=== PATIENT | male | born 1960 | race Caucasian/White ===

== ENCOUNTER 2021-04-26 12:17 | Outpatient (CLI) | payer BC, SELFPAY ==
--- NOTE | ~2021-04-26 | CT_ITS ---
EXAMINATION:CT lung screening DATE: 04/26/2021 12:35 INDICATION: Nicotine dependence, cigarettes, uncomplicated. TECHNIQUE: Computed tomography (CT) of the chest was performed without intravenous contrast. Automate d exposure control and iterative reconstruction technique were employed. The dose-length product (DLP ) was 129.41 mGy-cm. COMPARISON: None. FINDINGS: There is mild scarring at left lung apex and right lung base. There is mild emphysema. Ther e is a 4 mm nodule in right lower lobe. Calcified bilateral lung nodules are consistent with old gran ulomatous disease. No pleural effusion. The heart size is normal. No pericardial effusion. Calcificat ions in the spleen are consistent with old granulomatous disease. There are cysts in the liver measur ing up to 13 mm. There is mild chronic anterior wedging of multiple thoracic vertebral bodies. There is mild thoracic spondylosis. IMPRESSION: 1. Lung-RADS category 2: Benign appearance or behavior. Continue annual screening with noncontrast lo w-dose chest CT in 12 months. Reviewed, dictated and finalized at location A. IMPRESSION: 1. Lung-RADS category 2: Benign appearance or behavior. Continue annual screeni ng with noncontrast low-dose chest CT in 12 months.
== END 2021-04-26 12:18 | disposition home or self-care (01) ==
LOC: ANHIMG 12:20
PROVIDERS: PCP Internal Medicine; Visit Provider Nurse Practitioner
DX: F17.210 Nicotine dependence, cigarettes, uncomplicated (principal)
CPT/HCPCS: 71271

== ENCOUNTER 2021-08-31 02:56 | Day surgery (SDC) | payer BC, SELFPAY ==
[2021-08-13 12:19] VITALS: BMI 27.3
--- NOTE | 2021-08-30 09:32 | WPDANESEPPF ---
Anes - Initial Pre Proc Eval Procedure: Operation Date: 08/31/21 10:00 Proposed Procedures p Screening Colonoscopy - Eran Dela Cruz MD Date/Time: 08/30/21 09:32 Surgeon: Eran Dela Cruz MD Pre Op Diagnosis: neoplasm screening Patient Data Age: 61 Gender: M Height: 1.85 m Weight: 94 kg Allergies Allergy/AdvReac Type Severity Reaction Status Date / Time No Known Allergies Allergy Verified 08/22/21 13:57 Home Medications Medication Instructions Recorded Confirmed Type No Home Medications 04/13/21 08/13/21 History Patient hx anesthesia problems: none Family hx anesthesia problems: none Results Review: All pre-operative results and documents have been reviewed as part of the pre-operative evaluation. [facility] Past Medical History Medical History Hyperlipidemia Smoking greater than 30 pack years Family History Family History Mother Patient's mother is , Onset Age: 68 Father Patient's father is , Onset Age: 74 Social History Social History (Updated 04/13/21 @ 09:59 by Litzy Arreola) Social History: 3 cups of caffeine daily Smoking packs per day: 1 Smoking cigarettes per day: 20.0 Years smoked: 30 Smoking pack-years: 30.00 Smoking status: Former smoker Tobacco type: cigarettes Smoking end date: 07/21/17 Alcohol intake: current Drinks per week: 1 Alcohol use details: occasional Substance use: never Substance use type: does not use Living arrangements: with family Spiritual care concerns: No Anes - Eval Final PreProcedure Day of Procedure 08/30/21 09:32 Patient weight: overweight Heart: regular rate and rhythm Lungs: clear to auscultation and normal air movement Airway: Mallampati scale class II Neurological: alert and oriented Last oral intake: >/= 8 hours ASA classification: II Emergent: no Anesthetic plan: proceed Anesthesia type and monitoring: general GIVS and standard monitoring Results Review: All pre-operative results and documents have been reviewed as part of the pre-operative evaluation. Informed Consent: The patient's anesthetic plan and its attendant risks and benefits were discussed with the patient/family/POA. Questions were solicited and answers provided to the satisfaction of the patient/family/POA.
--- NOTE | 2021-08-30 14:37 | PM.HPGS ---
History of Present Illness History of Present Illness Consent: Risks, benefits, and alternatives have been discussed and questions answered. Patient agrees to proceed with procedure. Chief complaint: neoplasm screening Narrative: Sea Rollins is a 61 year old male referred for colon cancer screening his last colonoscopy was 10 years ago Review of Systems Review of Systems: All systems reviewed & are unremarkable except as noted in HPI and below PMFSH Past Medical History Medical History Hyperlipidemia Smoking greater than 30 pack years Family History Family History Mother Patient's mother is , Onset Age: 68 Father Patient's father is , Onset Age: 74 Social History Social History Social History: 3 cups of caffeine daily Smoking packs per day: 1 Smoking cigarettes per day: 20.0 Years smoked: 30 Smoking pack-years: 30.00 Smoking status: Former smoker Tobacco type: cigarettes Smoking end date: 07/21/17 Alcohol intake: current Drinks per week: 1 Alcohol use details: occasional Substance use: never Substance use type: does not use Living arrangements: with family Spiritual care concerns: No Meds Home Medications and Allergies Home Medications Medication Instructions Recorded Confirmed Type No Home Medications 04/13/21 08/13/21 History Allergies Allergy/AdvReac Type Severity Reaction Status Date / Time No Known Allergies Allergy Verified 08/22/21 13:57 Exam Resp: Auscultation: clear to auscultation bilaterally Cardio: Rate: regular rate Rhythm: regular rhythm GI: GI Palp: Yes Soft to palpation and No Tenderness to palpation present (GI) Assessment and Plan Assessment and plan (1) Screening for colon cancer: Code(s): Z12.11 - Encounter for screening for malignant neoplasm of colon Status: Acute Assessment and Plan: Colonoscopy with possible biopsy or polypectomy or cautery or injection of substances.
[2021-08-31 09:02] VITALS: BP 134/81; PULSE 63; RESP 20; TEMP 36.8; O2SAT 99; BMI 25.7
[2021-08-31] MEDS: LACTATED RINGERS 1,000 ML 150 ML IV CONT (09:36)
[2021-08-31 10:22] VITALS: BP 135/72; PULSE 71; RESP 16; O2SAT 99
[2021-08-31 10:32] VITALS: BP 146/81; PULSE 62; RESP 20; O2SAT 98
[2021-08-31 10:42] VITALS: BP 146/81; PULSE 54; RESP 19; O2SAT 100
== END 2021-08-31 11:02 | disposition home or self-care (01) ==
PROVIDERS: PCP Internal Medicine; Visit Provider Internal Medicine Gastroenterology
PROC: 0DJD8ZZ Inspection of Lower Intestinal Tract, Via Natural or Artificial Opening Endoscopic (ICD-10-PCS; CPT 45378; principal; 2021-08-31 10:00)
DX: Z12.11 Encounter for screening for malignant neoplasm of colon (principal); K64.8 Other hemorrhoids; K62.1 Rectal polyp; E78.5 Hyperlipidemia, unspecified; Z87.891 Personal history of nicotine dependence
CPT/HCPCS: 45380; 88305; J2704; J7120

== ENCOUNTER → 2022-04-15 10:31 | Outpatient (CLI) | payer BC, SELFPAY ==
--- NOTE | ~2022-04-15 | XR_ITS ---
EXAMINATION: XR foot RT min 3V DATE: 04/15/2022 10:41 INDICATION: Pain and deformity of the great toe TECHNIQUE: Dorsoplantar, lateral, and 2 oblique views of the right foot were obtained. COMPARISON: None. FINDINGS: There is advanced osteoarthritis of the first metatarsophalangeal joint. Mild osteoarthriti s is noted in multiple interphalangeal joints. There is no fracture. The soft tissues are unremarkabl e. Posterior and plantar calcaneal enthesophytes are noted. IMPRESSION: 1. Advanced osteoarthritis of the first metatarsophalangeal joint. Reviewed, dictated and finalized at location A.
== END ==
PROVIDERS: PCP Clinical Nurse Specialist; Visit Provider Clinical Nurse Specialist
DX: M19.071 Primary osteoarthritis, right ankle and foot (principal); M20.61 Acquired deformities of toe(s), unspecified, right foot
CPT/HCPCS: 73630

== ENCOUNTER 2024-06-09 07:59 | Outpatient (CLI) | payer OTHER, SELFPAY ==
[2024-06-09 14:13] LABS: Basophils Percent Auto 0.3 % (0.2-1.2); Eosinophils Absolute Auto 0.2 K/mm3 (0-0.3); Eosinophils Percent Auto 3.6 % (0-4.4); Hematocrit 46.6 % (42.0-52.0); Hemoglobin 15.8 g/dL (14.0-18.0); Immature Granulocyte Absolute 0.02 K/mm3 (0.00-0.031); Immature Granulocyte Percent A 0.3 % (0-0.5); Lymphocytes Absolute Auto 2.07 K/mm3 (0.9-3.2); Lymphocytes Percent Auto 31.4 % (18.3-44.2); Mean Corpuscular HGB Conc 33.9 g/dl (32-36); Mean Corpuscular Hemoglobin 34.3 pg (26-34); Mean Corpuscular Volume 101.1 fl (80-100); Mean Platelet Volume 10.1 fl (7.4-10.4); Monocytes Absolute Auto 0.6 K/mm3 (0.1-0.6); Monocytes Percent Auto 9.4 % (2.6-8.5); Neutrophils Absolute Auto 3.6 K/mm3 (1.3-6.7); Platelet Count Result 210 k/mm3 (150-375); Red Blood Count 4.61 M/mm3 (4.6-6.20); Red Cell Distribution Width 13.9 % (11.5-14.5); White Blood Count 6.6 K/mm3 (4.5-10.0)
[2024-06-09 18:47] LABS: Alanine Aminotransferase 20 U/L (6-50); Albumin Level 4.5 g/dL (3.5-5.1); Alkaline Phosphatase 58 U/L (38-126); Anion Gap 7 mmol/L (4-12); Aspartate Amino Transferase 74 U/L (17-59); Bilirubin,Total 0.9 mg/dL (0.2-1.3); Blood Urea Nitrogen 19 mg/dL (9-20); Calcium 9.1 mg/dL (8.4-10.2); Carbon Dioxide 30 mmol/L (22-30); Chloride 101 mmol/L (98-107); Cholesterol 180 mg/dL (0-200); Estimated Glomerular Filt Rate > 60; Glucose 89 mg/dL (65-110); HDL Direct 73 mg/dL; Potassium 4.5 mmol/L (3.4-5.0); Sodium 138 mmol/L (137-145); Triglycerides 109 mg/dL (<150)
[2024-06-09 19:04] LABS: LDL Cholesterol Direct 59 mg/dL
[2024-06-09 19:09] LABS: Prostate Specific Antigen 1.1 ng/mL (< OR = 4.0)
[2024-06-09 19:46] LABS: Hemoglobin A1C 5.6 % (<5.7)
== END 2024-06-09 08:00 | disposition home or self-care (01) ==
LOC: ANHGOSHLAB 08:00
PROVIDERS: PCP Internal Medicine; Visit Provider Clinical Nurse Specialist
DX: M79.671 Pain in right foot (principal); Z13.228 Encounter for screening for other metabolic disorders; Z12.5 Encounter for screening for malignant neoplasm of prostate; R73.9 Hyperglycemia, unspecified; E78.2 Mixed hyperlipidemia
CPT/HCPCS: 36415; 80053; 80061; 83036; 84153; 85025; G0103

== ENCOUNTER 2024-06-09 08:10 | Outpatient (CLI) | payer OTHER, SELFPAY ==
--- NOTE | ~2024-06-09 | XR_ITS ---
XR hip RT min 2V Ordering provider: JANELLE Jefferson History: . No injury right hip pain for 5 years . Comparison: None. FINDINGS: BONES: Lucency is seen in the subcapital area. Possibility of fracture cannot be excluded. CT is advi sed.. HIP JOINT SPACES: Moderate to severe narrowing of the right hip joint. Marginal osteophytes seen. SACROILIAC JOINT SPACES/LUMBAR SPINE: The sacroiliac joint spaces are normal. Mild degenerative salazar es of the visualized lower lumbar spine. PUBIC SYMPHYSIS: Normal. SOFT TISSUES: Normal. IMPRESSION: Lucency in the subcapital area. Fracture cannot be excluded. CT evaluation advised. Moderate to severe osteoarthritic changes of the right hip. Reviewed, dictated and finalized at location A. 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 Fracture cannot be excluded. CT evaluation advi sed. Moderate to severe osteoarthritic changes of the right hip.
--- NOTE | ~2024-06-09 | XR_ITS ---
XR foot RT min 3V Ordering provider: JANELLE Jefferson History: . No injury pain and bony mass at 1st MP joint for years . Comparison: None. FINDINGS: BONES: No acute fracture or dislocation. Early calcaneal spur JOINT SPACES: Severe narrowing of the first metatarsophalangeal joints with osteophytes suggestive of severe osteoarthritic changes. No tarsal coalition. SOFT TISSUES: Normal. IMPRESSION: No acute osseous abnormality of the right foot. Severe osteoarthritic changes of the first metatarsophalangeal joint. Reviewed, dictated and finalized at location A. RIDER
== END 2024-06-09 08:11 | disposition home or self-care (01) ==
LOC: GOSHIMG 08:11
PROVIDERS: PCP Internal Medicine; Visit Provider Clinical Nurse Specialist
DX: M19.071 Primary osteoarthritis, right ankle and foot (principal); M16.11 Unilateral primary osteoarthritis, right hip
CPT/HCPCS: 73502; 73630

== ENCOUNTER 2024-12-27 08:14 | Outpatient (CLI) | payer OTHER, SELFPAY ==
[2024-12-27 14:07] LABS: Alanine Aminotransferase 19 U/L (6-50); Albumin Level 4.8 g/dL (3.5-5.1); Alkaline Phosphatase 57 U/L (38-126); Anion Gap 9 mmol/L (4-12); Aspartate Amino Transferase 58 U/L (17-59); Bilirubin,Total 0.8 mg/dL (0.2-1.3); Blood Urea Nitrogen 22 mg/dL (9-20); Calcium 9.4 mg/dL (8.4-10.2); Carbon Dioxide 27 mmol/L (22-30); Chloride 100 mmol/L (98-107); Estimated Glomerular Filt Rate > 60; Glucose 104 mg/dL (65-110); Potassium 4.5 mmol/L (3.4-5.0); Sodium 136 mmol/L (137-145)
== END 2024-12-27 08:15 | disposition home or self-care (01) ==
PROVIDERS: PCP Internal Medicine; Visit Provider Clinical Nurse Specialist
DX: R74.01 Elevation of levels of liver transaminase levels (principal)
CPT/HCPCS: 36415; 80053

== ENCOUNTER 2025-02-16 08:19 | Outpatient (CLI) | payer OTHER, SELFPAY ==
[2025-02-16 20:07] LABS: Anion Gap 7 mmol/L (4-12); Blood Urea Nitrogen 16 mg/dL (9-20); Calcium 9.2 mg/dL (8.4-10.2); Carbon Dioxide 29 mmol/L (22-30); Chloride 100 mmol/L (98-107); Estimated Glomerular Filt Rate 59; Glucose 95 mg/dL (65-110); Potassium 4.8 mmol/L (3.4-5.0); Sodium 136 mmol/L (137-145)
== END 2025-02-16 08:20 | disposition home or self-care (01) ==
LOC: ANHGOSHLAB 08:20
PROVIDERS: PCP Internal Medicine; Visit Provider Clinical Nurse Specialist
DX: I10 Essential (primary) hypertension (principal)
CPT/HCPCS: 36415; 80048

== ENCOUNTER 2025-03-24 10:21 | Outpatient (CLI) | payer OTHER, SELFPAY ==
--- NOTE | ~2025-03-24 | XR_ITS ---
XR hip RT 2V w AP pelvis 03/24/2025 12:14 Indication: Right hip arthritis Procedure: AP pelvis and 2 views right hip Comparison: 07/16/2024 Findings: Progression of moderate osteoarthritis of the right hip. Mild osteoarthritis left hip. Pelvic rings intact. There is lower lumbar spondylosis. Sacral foramen are symmetric. Impression: 1: Bilateral osteoarthritis of the hips, right greater than left. Reviewed, dictated and finalized at location O. Impression: 1: Bilateral osteoarthritis of the hips, right greater than left.
== END 2025-03-24 10:22 | disposition home or self-care (01) ==
LOC: GOSHIMG 10:22
PROVIDERS: PCP Orthopaedic Surgery; Visit Provider Orthopaedic Surgery
DX: M16.0 Bilateral primary osteoarthritis of hip (principal)
CPT/HCPCS: 73502

== ENCOUNTER 2025-04-18 09:36 | Outpatient (CLI) | payer OTHER, SELFPAY ==
--- NOTE | ~2025-04-18 | CT_ITS ---
EXAMINATION: CT_LERTCHWO_CT DATE: 04/18/2025 09:56 INDICATION: Right hip osteoarthritis. Preoperative planning. TECHNIQUE: Computed tomography (CT) of the right hip was performed without intravenous contrast. Automated exposure control and iterative reconstruction technique were employed. The dose-length product was 1023.84 mGy-cm. COMPARISON: Radiographs 03/24/2025 FINDINGS: There are no dilated loops of bowel. The appendix is normal. There are no pathologically enlarged lymph nodes. There is no ascites. There is a right inguinal hernia containing fat. Alignment is normal. No fracture. There is severe right hip osteoarthritis with loose bodies. There is moderate left hip osteoarthritis. 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 Right knee demonstrates moderate osteoarthritis of the medial compartment and mild osteoarthritis of the lateral and patellofemoral compartments. Left knee demonstrates mild tricompartmental osteoarthritis. There is no knee joint effusion. IMPRESSION: 1. Severe right hip osteoarthritis with loose bodies. 2. Moderate left hip osteoarthritis. Reviewed, dictated and finalized at location E.
== END 2025-04-18 09:37 | disposition home or self-care (01) ==
PROVIDERS: PCP Orthopaedic Surgery; Visit Provider Orthopaedic Surgery
DX: M16.11 Unilateral primary osteoarthritis, right hip (principal); M24.051 Loose body in right hip
CPT/HCPCS: 73700

== ENCOUNTER 2025-05-26 08:42 | Outpatient (CLI) | payer OTHER, SELFPAY ==
[2025-05-26 13:02] LABS: Hematocrit 43.7 % (42.0-52.0); Hemoglobin 14.1 g/dL (14.0-18.0); Immature Granulocyte Percent A 0.3 % (0-0.5); Lymphocytes Absolute Auto 1.74 K/mm3 (0.9-3.2); Mean Corpuscular HGB Conc 32.3 g/dl (32-36); Mean Corpuscular Hemoglobin 32.7 pg (26-34); Mean Corpuscular Volume 101.4 fl (80-100); Nucleated Red Blood Cells Absolute Auto 0.000 K/mm3 (0.0-0.012); Nucleated Red Blood Cells Perc 0.0 % (0.0-0.2); Platelet Count Result 219 k/mm3 (150-375); Red Blood Count 4.31 M/mm3 (4.6-6.20); White Blood Count 6.7 K/mm3 (4.5-10.0)
[2025-05-26 13:14] LABS: Alanine Aminotransferase 21 U/L (6-50); Albumin Level 4.8 g/dL (3.5-5.1); Alkaline Phosphatase 58 U/L (38-126); Anion Gap 6 mmol/L (4-12); Aspartate Amino Transferase 48 U/L (17-59); Bilirubin,Total 0.7 mg/dL (0.2-1.3); Blood Urea Nitrogen 18 mg/dL (9-20); Calcium 9.1 mg/dL (8.4-10.2); Carbon Dioxide 30 mmol/L (22-30); Chloride 100 mmol/L (98-107); Cholesterol 217 mg/dL (0-200); Estimated Glomerular Filt Rate 55; Glucose 102 mg/dL (65-110); HDL Direct 76 mg/dL; Potassium 4.9 mmol/L (3.4-5.0); Sodium 136 mmol/L (137-145); Total Protein 8.1 g/dL (6.3-8.2); Triglycerides 79 mg/dL (<150)
[2025-05-26 14:09] LABS: Prostate Specific Antigen 1.1 ng/mL (< OR = 4.0)
[2025-05-26 16:45] LABS: Hemoglobin A1C 5.7 % (<5.7)
== END 2025-05-26 08:43 | disposition home or self-care (01) ==
PROVIDERS: Clinical Nurse Specialist; PCP Orthopaedic Surgery; Visit Provider Orthopaedic Surgery
DX: Z12.5 Encounter for screening for malignant neoplasm of prostate (principal); R73.9 Hyperglycemia, unspecified; E78.2 Mixed hyperlipidemia; R74.01 Elevation of levels of liver transaminase levels; Z79.899 Other long term (current) drug therapy; Z13.29 Encounter for screening for other suspected endocrine disorder; M16.11 Unilateral primary osteoarthritis, right hip
CPT/HCPCS: 36415; 80053; 80061; 80307; 83036; 84153; 85025; G0103

== ENCOUNTER 2025-05-27 07:13 | Outpatient (CLI) | payer OTHER, SELFPAY ==
--- NOTE | 2025-05-27 08:17 | ECG_ITS ---
Test Date: 2025-05-27 08:24:17 Measurements Intervals [place] Rate: 63 P: 66 MT: 185 QRS: 12 QRSD: 97 T: 58 QT: 376 QTc: 386 Interpretive Statements SINUS RHYTHM POSSIBLE RIGHT VENTRICULAR CONDUCTION DELAY Electronically Signed On 05-27-2025 10:04:40 RADIATION ENGINEER by Codey Christine D.O
== END 2025-05-27 07:14 | disposition home or self-care (01) ==
PROVIDERS: PCP Internal Medicine; Visit Provider Orthopaedic Surgery
DX: I10 Essential (primary) hypertension (principal)
CPT/HCPCS: 93005

== ENCOUNTER 2025-06-03 08:06 | Outpatient (CLI) | payer OTHER, SELFPAY ==
[2025-06-03 11:25] LABS: Anion Gap 6 mmol/L (4-12); Blood Urea Nitrogen 21 mg/dL (9-20); Calcium 8.9 mg/dL (8.4-10.2); Carbon Dioxide 30 mmol/L (22-30); Chloride 100 mmol/L (98-107); Estimated Glomerular Filt Rate 56; Glucose 99 mg/dL (65-110); Potassium 4.5 mmol/L (3.4-5.0); Sodium 136 mmol/L (137-145)
== END 2025-06-03 08:07 | disposition home or self-care (01) ==
LOC: ANHGOSHLAB 08:07
PROVIDERS: PCP Internal Medicine; Visit Provider Clinical Nurse Specialist
DX: I10 Essential (primary) hypertension (principal)
CPT/HCPCS: 36415; 80048